=== PATIENT | male | born 1945 | race Caucasian/White ===

== ENCOUNTER 2017-04-23 13:27 | Inpatient (IN) | payer MEDICARE, BC ==
[2017-04-23 14:02] LABS: #Basophils 0.1 thou/uL (0.0-0.2); #Eosinphils 0.2 thou/uL (0.0-0.7); #Lymphocytes 1.7 thou/uL (1.20-3.40); #Monocytes 0.7 thou/uL (0.11-0.59); #Neutrophils 7.7 thou/uL (1.40-6.50); %Basophils 0.6 % (0.0-1.0); %Eosinophils 1.9 % (0.0-10.0); %Lymphocytes 16.5 % (21.0-51.0); %Monocytes 6.6 % (0.0-10.0); %Neutrophils 74.5 % (42.0-75.0); Hemoglobin 13.7 g/dL (14.0-18.0); Mean Corpuscular HGB CONC 33.4 g/dL (32.0-36.0); Mean Corpuscular Hemoglobin 31.2 pg (27.0-31.0); Mean Corpuscular Volume 93.4 fl (80.0-94.0); Mean Platelet Volume 8.2 fL (7.4-10.4); Platelet Count 184 thou/uL (130-400); RBC Distribution Width 13.2 % (11.5-14.5); Red Blood Cell (RBC) Count 4.39 mill/uL (4.70-6.10); White Blood Cell (WBC) Count 10.4 thou/uL (4.8-10.8)
[2017-04-23 14:09] LABS: INR-International Normal Ratio 1.1; PTT 32.1 SEC (22.9-36.1); Prothrombin Time 14.8 SEC (12.0-14.7)
--- NOTE | 2017-04-23 14:11 | RAD ---
CHEST 1 VIEW: COMPARISON: 03/10/17. HISTORY: Stroke in January. Right-sided weakness. Cough and slurred speech. FINDINGS: Portable upright chest demonstrates atherosclerosis of the aorta. Stable postsurgical change of left hilum. Normal cardiac silhouette. The pulmonary vessels are within normal limits. Costophrenic an gles are clear. No mass. No consolidation. No pneumothorax or osseous abnormalities. IMPRESSION: 1. No acute cardiopulmonary process. 2. Atherosclerosis. POS: [facility]
[2017-04-23 14:20] LABS: ALT (SGPT) 24 U/L (8-55); AST (SGOT) 13 U/L (5-34); Alkaline Phosphatase 94 U/L (40-150); Anion Gap 16 mmol/L (10-20); BUN (Urea Nitrogen) 26 mg/dL (8.4-25.7); Bilirubin, Total 0.3 mg/dL (0.2-1.2); Calc. Creatinine Clearance 0 mL/min (70-130); Carbon Dioxide 20 mmol/L (23-31); Chloride 104 mmol/L (98-107); Estimated GFR-MDRD 46; Globulin 2.8 g/dL (2.4-3.5); Glucose 152 mg/dL (83-110); Potassium 4.7 mmol/L (3.5-5.1); Protein, Total 6.8 g/dL (5.8-8.1); Sodium 135 mmol/L (136-145)
[2017-04-23 14:27] LABS: CKMB 1.5 ng/mL (0-6.6); Troponin I Less than 0.010 ng/mL (< 0.028)
--- NOTE | 2017-04-23 14:50 | CT ---
EXAM: NONCONTRAST HEAD CT: HISTORY: Altered mental status. COMPARISON: 02/18/17. TECHNIQUE: Noncontrast head CT is performed from the skull base to the skull vertex. FINDINGS: No parenchymal hemorrhage. No extraaxial hematoma. No midline shift. Basilar cisterns are patent. There is malacic and gliotic change involving the left temporal and occipital lobe compatible with re mote insult. Additionally, there is loss of beckman-white matter differentiation and sulcal effacement involving the superior left temporal lobe. Inferior distribution age-indeterminate infarction is hong pected. There is a linear hyperdensity involving the beckman matter. There could be small areas of cor tical petechial hemorrhages. Better interrogation with brain MRI is recommended. Calvarium is intact. Cavernous carotid atherosclerosis. Adequate aeration of the sinuses and mastoi d air cells. IMPRESSION: 1. Remote lacunar infarcts involving the left cerebrum. 2. Indeterminate, likely subacute infarct involving the left temporal lobe. Correlate for possible middle cerebral artery distribution infarction. Linear hyperdensities in the region of infarct may r epresent small areas of cortical petechial hemorrhage. Brain MRI is recommended. Results of the study were discussed with Dr. Andrés Gutierrez 04/23/17 at 2:11 p.m. CODE CR POS: [facility]
[2017-04-23 15:57] LABS: Bilirubin Negative (Negative); Blood, Urine Negative (Negative); Clarity CLEAR (Clear); Glucose, Urine (Dipstick) Negative (Negative); Leukocyte Trace (Negative); Nitrite Negative (Negative); Protein, Urine (Dipstick) Negative (Neg-Trace); Specific Gravity, Urine 1.019 (1.002-1.036); Urobilinogen 0.2 mg/dL (0.2-1.0); pH, Urine 6.5 (5.0-9.0)
[2017-04-23 16:00] LABS: Bacteria/HPF None Seen HPF (None Seen); Hyaline Casts/LPF 0-3 HYALINE CAST LPF (0-3 Hyaline); RBC/HPF None Seen HPF (0-3); Squamous Epithelial None Seen HPF (0-3); WBC/HPF 0-3 HPF (0-3)
[2017-04-23] MEDS ORDERED: Oxymetazoline HCl 0.05% ( 15 ML ) ONE (16:14)
[2017-04-23] MEDS ORDERED: Ondansetron HCl/PF 4 MG/2 ML Vial IVP PRN ×2 (17:22→21:49)
[2017-04-23] MEDS ORDERED: Acetaminophen 325 MG TAB PO PRN ×2 (17:22→21:49)
[2017-04-23] MEDS ORDERED: HYDROcodone/Acetaminophen 5/325 mg Tablet PO PRN ×2 (17:22)
[2017-04-23] MEDS ORDERED: Ondansetron ODT 4 MG TAB SL PRN (17:22)
--- NOTE | 2017-04-23 17:35 | MRI ---
BRAIN MRI NONCONTRAST 04/23/[address] earlier same day. CLINICAL HISTORY: Altered mental status, acute stroke. FINDINGS: There is evidence of moderate sized region of restriction involving the posterior division left MCA t erritory which demonstrates FLAIR and T2 hyperintensity. There is subtle susceptibility which may rel ate to associated microhemorrhage. There is mild localized mass effect as result of the cytotoxic florence ma within the posterior left hemisphere. Ventricular system is mildly prominent due to patient age an d generalized mild parenchymal volume loss. There is mild chronic microvascular ischemic disease. Mil d right mastoid fluid is present. Motion artifact does limit assessment of the skull base flow voids. IMPRESSION: Subacute infarction, moderate in size involving posterior division left MCA territory with subtle MR findings to indicate a microhemosiderin which may be on the basis of early hemorrhagic transformation . There is mild mass effect as the result of cytotoxic edema. If not already performed, neurology consultation is advised due to the patient's symptoms and imaging findings. Recommend short term CT head followup to evaluate for potential evolutionary changes. POS: [facility]
[2017-04-23] MEDS ORDERED: FLU VACC TS2017-18 (>65YR) 0.5 ML SYRINGE IM ONE (19:45)
[2017-04-23] MEDS: Sodium Chloride 0.9% 1,000 ML IV SCH (20:51)
[2017-04-23] MEDS ORDERED: Calcium Carbonate 500 MG ChewTAB PO PRN (21:49)
[2017-04-23] MEDS ORDERED: Senokot 8.6 MG TAB PO PRN (21:49)
[2017-04-23] MEDS ORDERED: Ondansetron ODT 4 MG TAB PO PRN (21:49)
[2017-04-23] MEDS ORDERED: Acetaminophen 650 MG Suppository PR PRN (21:49)
[2017-04-23] MEDS ORDERED: hydrALAZINE 20 MG/ML VIAL SLOW IVP PRN (21:51)
[2017-04-23] MEDS ORDERED: Labetalol HCl 100 MG/20 ML VIAL SLOW IVP PRN (21:51)
[2017-04-24 05:23] LABS: #Basophils 0.1 thou/uL (0.0-0.2); #Eosinphils 0.2 thou/uL (0.0-0.7); #Lymphocytes 1.9 thou/uL (1.20-3.40); #Monocytes 0.6 thou/uL (0.11-0.59); #Neutrophils 4.9 thou/uL (1.40-6.50); %Basophils 0.8 % (0.0-1.0); %Eosinophils 2.8 % (0.0-10.0); %Lymphocytes 24.7 % (21.0-51.0); %Monocytes 7.7 % (0.0-10.0); Mean Corpuscular HGB CONC 33.3 g/dL (32.0-36.0); Mean Corpuscular Hemoglobin 31.1 pg (27.0-31.0); Mean Corpuscular Volume 93.2 fl (80.0-94.0); Mean Platelet Volume 8.3 fL (7.4-10.4); Platelet Count 180 thou/uL (130-400); RBC Distribution Width 13.2 % (11.5-14.5); Red Blood Cell (RBC) Count 4.19 mill/uL (4.70-6.10); White Blood Cell (WBC) Count 7.6 thou/uL (4.8-10.8)
[2017-04-24 05:46] LABS: ALT (SGPT) 21 U/L (8-55); AST (SGOT) 14 U/L (5-34); Albumin 3.8 g/dL (3.4-4.8); Alkaline Phosphatase 90 U/L (40-150); Anion Gap 11 mmol/L (10-20); BUN (Urea Nitrogen) 20 mg/dL (8.4-25.7); Bilirubin, Total 0.4 mg/dL (0.2-1.2); Calc. Creatinine Clearance 68 mL/min (70-130); Calcium 9.8 mg/dL (7.8-10.44); Carbon Dioxide 23 mmol/L (23-31); Cardiac Risk 6.1 (Less than 4.5); Chloride 106 mmol/L (98-107); Cholesterol 200 mg/dl (< 200 Desired); Estimated GFR-MDRD 56; Globulin 2.7 g/dL (2.4-3.5); Glucose 123 mg/dL (83-110); HDL Cholesterol 33 mg/dL (>60 Neg Risk); LDL Cholesterol, Calculated 127 mg/dL; Potassium 4.3 mmol/L (3.5-5.1); Protein, Total 6.5 g/dL (5.8-8.1); Sodium 136 mmol/L (136-145); Triglycerides 199 mg/dL (Less than 150)
[2017-04-24] MEDS ORDERED: Dextrose 5% in Water 1,000 ML IV PRN (06:02)
[2017-04-24] MEDS ORDERED: Dextrose 50% Abboject 50 ML SYRINGE SLOW IVP PRN (06:02)
[2017-04-24] MEDS ORDERED: Insulin Regular 300 UNITS/3 ML VIAL SC PRN ×2 (06:02)
--- NOTE | 2017-04-24 06:28 | HP ---
Please note that patient has 2 different medical records. Records from recent admission are in different account. DATE OF ADMISSION: 04/23/2017 PRIMARY CARE PHYSICIAN: Enrrique thao. CHIEF COMPLAINT: Flu-like symptoms. CODE STATUS: DO NOT RESUSCITATE. This was confirmed by RN with family. SURROGATE DECISION MAKER: Family. Probably the spouse. This needs to be reconfirmed. History obtained from the review of the ER chart. No family at the bedside. The patient is a poor historian. HISTORY OF PRESENT ILLNESS: The patient is a 71-year-old male with history of recent CVA, currently on Eliquis; diabetes mellitus type 2; and hypertension who presented to the emergency room with stroke like symptoms. Again, the history is limited due to patient being a poor historian. No family at the bedside. Per review of ER record, patient had a stroke in January with residual right-sided weakness and slurring of speech. Over the last 24 hours, his weakness and slurring of speech got worse for which he was brought to the emergency room. His NIH in the emergency room was 12. He was sitting on the side of the bed at home when he slumped over and was unable to get up. His initial vital signs in the emergency room showed temperature 97.8, respirations 18, pulse rate of 70 with blood pressure 135/65 with O2 saturation of 96% on room air. He also had decreased alertness per ER report. In the emergency room, CT scan of the brain was consistent with subacute infarction involving the left temporal lobe along with possible petechial hemorrhages. MRI of the brain done in the emergency room showed subacute infarction, moderate in size involving posterior division of the left MCA territory with possible early hemorrhagic transformation. For this reason, he did not get any aspirin or Eliquis. His last dose of Eliquis was in the morning of admission. PAST MEDICAL HISTORY: 1. Chronic atrial fibrillation on anticoagulation. 2. Hypertension. 3. Diabetes mellitus type 2. 4. History of lung cancer, status post lobectomy. 5. History of CVA. 6. Hypertension. PAST SURGICAL HISTORY: 1. Left carotid endarterectomy in 2014. 2. Left thoracotomy with left upper lobectomy and mediastinal lymph node dissection in 2014. 3. Surgery for hernia. SOCIAL HISTORY: Patient currently lives at home with his family. He is a former smoker, has more than [id number] smoking history. FAMILY HISTORY: Positive for heart disease and malignancies. REVIEW OF SYSTEMS: Cannot be reliably obtained from the patient due to current cognitive status. PHYSICAL EXAMINATION: VITAL SIGNS: As discussed above. GENERAL: A 71-year-old male in no apparent distress. He is awake with intermittent confusion. HEENT: Head is atraumatic, normocephalic. Sclerae are anicteric. Moist mucous membranes. No oral lesion. NECK: Supple, no JVD appreciated. No carotid bruit. LUNGS: Clear to auscultation bilaterally with scattered rhonchi, no wheezing noted. HEART: S1 and S2 present. Regular rate and rhythm. No rubs or gallops. No heaves or pulsation. ABDOMEN: Soft. Bowel sounds present. No rebound or guarding. EXTREMITIES: No edema or calf tenderness. NEUROLOGIC: Examination was limited due to current cognitive status. He was, however, following commands appropriately. There is flaccid right-sided weakness. His speech is still somewhat slurry. Sensory examination could not be done due to current cognitive status. PSYCHIATRY: As discussed above. LYMPH NODES: No palpable lymph nodes in the neck. PERIPHERAL VASCULAR: Radial pulses palpable bilaterally. MUSCULOSKELETAL: No joint swelling or tenderness. LABORATORY DATA AND IMAGING DATA: 1. Creatinine 1.50 with BUN of 26. 2. CBC showed WBC 10.4 with hemoglobin 13.7. 3. Chest x-ray by my review was negative for infiltrate. 4. CT of the brain and MRI by my review as discussed above. 5. Telemetry monitoring by my review showed sinus rhythm. 6. Troponins were negative. IMPRESSION: 1. Acute cerebrovascular accident involving the left middle cerebral artery distribution with possible hemorrhagic transformation. 2. Diabetes mellitus type 2. 3. Hypertension. 4. Hyperlipidemia. 5. Acute kidney injury on chronic kidney disease stage 3, probably secondary to dehydration. 6. Chronic anticoagulation for atrial fibrillation. 7. History of carotid stenosis, status post left carotid endarterectomy. 8. History of left lung cancer status post lobectomy. 9. A 90-[id number] smoking history. 10. DO NOT RESUSCITATE. PLAN: 1. The patient will be monitored in the Stroke Unit. Stroke team will be consulted. We will hold anticoagulants and antiplatelet agents due to possible hemorrhagic conversion. Neurology will be consulted. We will hold all the p.o. medications due to failed dysphagia screen. Gentle intravenous hydration. Insulin sliding scale. 2. The patient will require 2-3 days for stabilization. 3. Discharge planning probably to inpatient rehabilitation versus long term facility. 4. We will discuss the plan of care with the family when they arrive. [facility]
[2017-04-24] MEDS: Docusate 100 MG CAP PO SCH ×2 (08:30→22:25)
[2017-04-24] MEDS: Famotidine 20 MG TAB PO SCH (08:30)
[2017-04-24] MEDS: Sodium Chloride 0.9% 1,000 ML IV SCH (11:00)
[2017-04-24 11:40] VITALS: BMI 28.3
--- NOTE | 2017-04-24 15:48 | EKG ---
Test Reason : Blood Pressure : / mmHG Vent. Rate : 069 BPM Atrial Rate : 069 BPM P-R Int : 196 ms QRS Dur : 090 ms QT Int : 432 ms P-R-T Axes : 066 029 070 degrees QTc Int : 462 ms Normal sinus rhythm Prolonged QT Abnormal ECG Confirmed by LEANA PILLAI MD ([id number]), communications editor IAN STARKEY ([id number]) on 04/24/2017 3:47:57 PM Referred By: Confirmed By:LEANA PILLAI MD
--- NOTE | 2017-04-24 16:16 | CON ---
NEUROLOGY CONSULTATION NOTE DATE OF CONSULTATION: 04/24/2017 CONSULTING PHYSICIAN: Hospitalist Service. IMPRESSION: 1. Recurrent stroke in the left posterior MCA distribution. 2. Atrial fibrillation. 3. Past history of left carotid endarterectomy. 4. Eliquis failure. PLAN: 1. Repeat CT scan in 2 days and to rule out secondary hemorrhaging of significance. 2. Restart anticoagulation in [address] is stable. 3. Add aspirin 81 mg per day. 4. The patient will be discharged home to his 's care. HISTORY OF PRESENT ILLNESS: Mr. Arcos is a 71-year-old man with a reported history of a stroke with some right hemiparesis and speech difficulties. He was hospitalized in February and then went on to rehab as did not care that he received in rehab and has been taking care of him at home. He had an acute worsening of his right-sided weakness and came back into the hospital. A CT scan showed ev idence of subacute ischemic changes as well as some petechial hemorrhage, has been admitted for furth er evaluation and he was taken off of his Eliquis. PAST MEDICAL HISTORY: Positive for lung cancer, COPD, hypertension and diabetes. PAST SURGICAL HISTORY: Left endarterectomy in 2014, thoracotomy and hernia repair. SOCIAL HISTORY: Tobacco use of [id number] history. FAMILY HISTORY: Noncontributory. REVIEW OF SYSTEMS: No complaints of headache, nausea or dizziness. PHYSICAL EXAMINATION: GENERAL: He is a well-nourished elderly man lying in bed in no distress. HEENT: Pupils are equal and reactive. Conjunctivae clear. Oropharynx clear. NECK: Supple. EXTREMITIES: No cyanosis, clubbing or edema. NEUROLOGIC: He is alert and cooperative. He had naming and word finding difficulty. He followed co mmands reasonably well. Cranial nerve exam did not show any remarkable asymmetries. Motor exam show ed fairly dense hemiparesis on the right. Gait was not testable. No abnormal movements were seen. Sensation was intact. IMAGING DATA: CT and MRI images were reviewed. SUMMARY: An elderly gentleman with recurrent stroke symptoms despite anticoagulation. I suspect it may be a primary thrombosis. If he has a stable CT scan, we can restart anticoagulation as well as l ow dose aspirin.
--- NOTE | 2017-04-24 16:49 | CON ---
DATE OF CONSULTATION: 04/24/2017 HISTORY: Arcos patient is a 71-year-old gentleman with a history of cerebrovascular accident who presented with increasing weakness. The patient has a history of lung carcinoma. He has previously undergone a lung resection. He also has a history of cerebrovascular disease. The patient was seen in 2015 with postoperative atrial fibrillation. He has been on chronic anticoagulation including apixaban. The patient presented with apparent extreme weakness and possibly more slurred speech with increasing weakness. PAST MEDICAL HISTORY: 1. Cerebrovascular disease. 2. Diabetes mellitus. 3. Lung carcinoma. 4. Hypertension. PAST SURGICAL HISTORY: Carotid endarterectomy, hernia surgery, lung resection. SOCIAL HISTORY: Former smoker. FAMILY HISTORY: Strong family history of heart disease. REVIEW OF SYSTEMS: No bright red blood per rectum or hematuria. PHYSICAL EXAMINATION: GENERAL: Elderly gentleman in no acute distress. VITAL SIGNS: Blood pressure was 145/64. NECK: No jugular venous distention. LUNGS: Coarse breath sounds bilateral. HEART: Regular rate and rhythm, normal S1, S2. ABDOMEN: Nondistended. EXTREMITIES: Showed no edema. NEUROLOGIC: The patient has slurred speech and right-sided weakness. VASCULAR: Radial pulses are 2+. LABORATORY DATA: Sodium 136, potassium 4.3, chloride 106, bicarbonate 23, BUN 20, creatinine 1.27, glucose 123. White blood cell count 7.6, hemoglobin 13.0, hematocrit 31.1, and his platelets were 180. His EKG revealed him to have normal sinus rhythm. IMPRESSION: 1. Cerebrovascular accident. 2. Hypertension. 3. History of lung carcinoma. 4. History of cerebrovascular accident. The patient presents with a possible new CVA based on his CT scan. The patient' s apixaban is being held to prevent hemorrhagic conversion. From a cardiac standpoint, would continue the patient on Amiodarone to maintain sinus rhythm. We will increase the dose of the patient's lipid lowering medication. We will repeat a carotid ultrasound. We will await Neurology recommendations. We will follow this patient with you through his hospitalization. KRISTI
[2017-04-24] MEDS ORDERED: Aspirin 81 mg Enteric Coated Tablet PO SCH (17:30)
--- NOTE | 2017-04-24 21:01 | PDOC.PN ---
- Subjective Encounter Start Date: 04/24/17 Encounter Start Time: 18:00 Patient seen and examined. No new complaints. No overnight events. No new focal deficits. - Objective Resuscitation Status: Resuscitation Status DNR:Do Not Resuscitate MAR Reviewed: Yes Vital Signs & Weight: Vital Signs (12 hours) Temp Pulse Pulse Pulse Resp BP BP 04/24/17 20:47 98 F 77 20 04/24/17 20:21 97.8 F 82 20 04/24/17 15:34 97.8 F 82 20 04/24/17 11:49 97.7 F 94 20 04/24/17 11:41 85 78 173/77 H 180/74 H BP Pulse Ox 04/24/17 20:47 155/70 H 91 L 04/24/17 20:21 91 L 04/24/17 15:34 128/60 95 04/24/17 11:49 173/77 H 94 L 04/24/17 11:41 Weight Admit Weight 199 lb 6.4 oz Weight 202 lb 11.2 oz I&O: 04/23/17 04/24/17 04/25/17 06:59 06:59 06:59 Intake Total 666 Output Total 775 2 Balance -109 -2 Result Diagrams: 04/24/17 04:37 04/24/17 04:37 Additional Labs: Accuchecks 04/24/17 04/24/17 04/24/17 17:02 11:03 06:27 POC Glucose 163 H 120 H 128 H 04/23/17 21:19 POC Glucose 109 EKG Reviewed by me: Yes (Tele SR) Phys Exam - Physical Examination Constitutional: NAD Respiratory: no wheezing, no rhonchi Cardiovascular: RRR, no rub Gastrointestinal: soft, non-tender, positive bowel sounds Musculoskeletal: no edema Neuro - Rt sided weakness, no new focal findings Deviation from normal: Psych - at baseline Skin: no rash Dx/Plan - Plan DVT proph w/SCDs IMPRESSION: 1. Acute cerebrovascular accident involving the left middle cerebral artery distribution with possible hemorrhagic transformation. 2. Diabetes mellitus type 2. 3. Hypertension. 4. Hyperlipidemia. 5. Acute kidney injury on chronic kidney disease stage 3, probably secondary to dehydration. 6. Chronic anticoagulation for atrial fibrillation. 7. History of carotid stenosis, status post left carotid endarterectomy. 8. History of left lung cancer status post lobectomy. 9. A [id number] smoking history. 10. DO NOT RESUSCITATE. PLAN: * Resume ASA and repeat CT brain on wednesday per Neuro * Eliquis on hold * Cardio/Neuro following * Resume Amiodarone/Lisinopril * Stroke team * Cont to monitor Review of Systems - Review of Systems Other: Cannot obtain due to dementia - Medications/Allergies Allergies/Adverse Reactions: Allergies Allergy/AdvReac Type Severity Reaction Status Date / Time No Known Allergies Allergy Verified 04/23/17 19:16 Medications: Current Medications Acetaminophen (Tylenol) 650 mg PO Q4H PRN PRN Reason: Headache/Fever or Pain Acetaminophen (Tylenol) 650 mg [place] Q4H PRN PRN Reason: Headache/Fever or Pain Aspirin (Ecotrin) 81 mg PO DAILY [facility] Atorvastatin Calcium (Lipitor) 10 mg PO HS [facility] Calcium Carbonate (Tums) 1,000 mg PO Q4H PRN PRN Reason: Heartburn or Indigestion Dextrose/Water (Dextrose 50%) 25 gm SLOW IVP PRN PRN PRN Reason: Hypoglycemia Docusate Sodium (Colace) 100 mg PO BID [facility] Last Admin: 04/24/17 08:30 Dose: Not Given Famotidine (Pepcid) 20 mg PO DAILY [facility] Last Admin: 04/24/17 08:30 Dose: Not Given Glucagon (Glucagon) 1 mg IM PRN PRN PRN Reason: Hypoglycemia Hydralazine HCl (Apresoline) 10 mg SLOW IVP Q4H PRN PRN Reason: SBP Greater Than 180 Sodium Chloride (Normal Saline 0.9%) 1,000 mls @ 70 mls/hr IV .[id number] [facility] Last Admin: 04/24/17 11:00 Dose: 1,000 mls Dextrose/Water (D5w) 1,000 mls @ 0 mls/hr IV .Q0M PRN; As Directed PRN Reason: Hypoglycemia Insulin Human Regular (Humulin R) 0 units SC .MILD SLIDING SCALE PRN PRN Reason: Mild Correctional Scale Insulin Human Regular (Humulin R) 0 units SC .BEDTIME SLIDING SC PRN PRN Reason: Bedtime Correctional Scale Labetalol HCl (Normodyne) 10 mg SLOW IVP Q4H PRN PRN Reason: Systolic BP > 180 Lisinopril (Zestril) 10 mg PO DAILY [facility] Non-Formulary Medication (Amiodarone Hcl [Amiodarone Hcl]) 400 mg PO DAILY [facility] Non-Formulary Medication (Diltiazem Hcl [Cartia Xt]) 120 mg PO DAILY [facility] Ondansetron HCl (Zofran Odt) 4 mg PO Q6H PRN PRN Reason: Nausea/Vomiting Ondansetron HCl (Zofran) 4 mg IVP Q6H PRN PRN Reason: Nausea/Vomiting Senna (Senokot) 2 tab PO HSPRN PRN PRN Reason: Constipation
[2017-04-24] MEDS: Atorvastatin Calcium 10 MG TAB PO SCH (22:25)
[2017-04-25] MEDS: Sodium Chloride 0.9% 1,000 ML IV SCH ×3 (00:17→17:46)
[2017-04-25] MEDS: Lisinopril 10 MG TAB PO SCH (08:39)
[2017-04-25] MEDS: Famotidine 20 MG TAB PO SCH (08:39)
[2017-04-25] MEDS: Aspirin 81 mg Enteric Coated Tablet PO SCH (08:40)
[2017-04-25] MEDS: Docusate 100 MG CAP PO SCH ×2 (08:40→21:40)
[2017-04-25] MEDS: Amiodarone 200 MG TAB PO SCH (08:40)
--- NOTE | 2017-04-25 13:37 | PDOC.PN ---
- Subjective Encounter Start Date: 04/25/17 Encounter Start Time: 13:35 Patient seen at bedside. Still with slurring speech, no overnight events. - Objective Resuscitation Status: Resuscitation Status DNR:Do Not Resuscitate MAR Reviewed: Yes Vital Signs & Weight: Vital Signs (12 hours) Temp Pulse Resp BP Pulse Ox 04/25/17 11:53 98.5 F 70 20 153/72 H 95 04/25/17 08:39 75 04/25/17 08:00 97.9 F 75 20 04/25/17 07:48 97.9 F 75 20 168/75 H 94 L 04/25/17 04:42 98.5 F 79 16 169/79 H 93 L Weight Admit Weight 199 lb 6.4 oz Weight 207 lb 1.6 oz I&O: 04/24/17 04/25/17 04/26/17 06:59 06:59 06:59 Intake Total 666 840 Output Total 775 2 Balance -109 838 Result Diagrams: 04/24/17 04:37 04/24/17 04:37 Additional Labs: Accuchecks 04/25/17 04/25/17 04/25/17 10:49 06:13 01:07 POC Glucose 178 H 123 H 117 H 04/24/17 17:02 POC Glucose 163 H Phys Exam - Physical Examination Constitutional: NAD HEENT: moist MMs Neck: no JVD Respiratory: clear to auscultation bilateral Cardiovascular: irregular Gastrointestinal: soft Musculoskeletal: pulses present Right sided weakness Psychiatric: A&O x 3 Dx/Plan (1) CVA (cerebral vascular accident) Code(s): I63.9 - CEREBRAL INFARCTION, UNSPECIFIED Status: Acute Qualifiers: CVA mechanism: unspecified Qualified Code(s): I63.9 - Cerebral infarction, unspecified (2) Atrial fibrillation Code(s): I48.91 - UNSPECIFIED ATRIAL FIBRILLATION Status: Chronic (3) Hypertension Code(s): I10 - ESSENTIAL (PRIMARY) HYPERTENSION Status: Chronic - Plan cont current plan of care, plan discussed w/ family, PT/OT, DVT proph w/SCDs * Continue with ASA/Statin. * Add Hydralazine * Amiodarone for rate control/antiarrythmia * For repeat CT in AM to reevaluate possible hemorrhagic conversion seen on MRI. If stable or improved, to restart Eliquis * PT/OT * CM for disposition assistance
[2017-04-25] MEDS: hydrALAZINE 10 MG TAB PO SCH (21:40)
[2017-04-25] MEDS: Atorvastatin Calcium 10 MG TAB PO SCH (21:40)
[2017-04-26] MEDS: Sodium Chloride 0.9% 1,000 ML IV SCH (05:53)
[2017-04-26 07:36] LABS: #Basophils 0.1 thou/uL (0.0-0.2); #Eosinphils 0.2 thou/uL (0.0-0.7); #Lymphocytes 1.7 thou/uL (1.20-3.40); #Monocytes 0.6 thou/uL (0.11-0.59); #Neutrophils 5.1 thou/uL (1.40-6.50); %Eosinophils 2.7 % (0.0-10.0); %Lymphocytes 22.1 % (21.0-51.0); %Monocytes 7.4 % (0.0-10.0); %Neutrophils 66.8 % (42.0-75.0); Hemoglobin 14.6 g/dL (14.0-18.0); Mean Corpuscular HGB CONC 34.1 g/dL (32.0-36.0); Mean Corpuscular Hemoglobin 31.6 pg (27.0-31.0); Mean Corpuscular Volume 92.4 fl (80.0-94.0); Mean Platelet Volume 8.7 fL (7.4-10.4); Platelet Count 188 thou/uL (130-400); RBC Distribution Width 13.3 % (11.5-14.5); Red Blood Cell (RBC) Count 4.61 mill/uL (4.70-6.10); White Blood Cell (WBC) Count 7.6 thou/uL (4.8-10.8)
[2017-04-26 08:01] LABS: Albumin 3.9 g/dL (3.4-4.8); Anion Gap 15 mmol/L (10-20); BUN (Urea Nitrogen) 13 mg/dL (8.4-25.7); BUN/Creatinine Ratio 10.48; Calc. Creatinine Clearance 72 mL/min (70-130); Calcium 10.1 mg/dL (7.8-10.44); Carbon Dioxide 20 mmol/L (23-31); Chloride 108 mmol/L (98-107); Estimated GFR-MDRD 57; Glucose 124 mg/dL (83-110); Magnesium 1.9 mg/dL (1.6-2.6); Potassium 4.1 mmol/L (3.5-5.1); Sodium 139 mmol/L (136-145)
--- NOTE | 2017-04-26 08:36 | CT ---
CT OF THE BRAIN WITHOUT IV CONTRAST: INDICATION: Followup CVA. COMPARISON: CT of the brain dated 04/23/17 and MRI of the brain dated 04/23/17. FINDINGS: The subacute infarct with evidence of some cortical hemorrhagic conversion involving the posterior le ft MCA distribution is not appreciably changed. The remote infarct involving the left parietal occip ital region is stable. Septum pellucidum and third ventricle are midline. No definite acute change is grossly evident. The skull and extracranial soft tissues appear within normal limits. IMPRESSION: Stable exam. POS: [facility]
[2017-04-26] MEDS: Amiodarone 200 MG TAB PO SCH (09:13)
[2017-04-26] MEDS: Aspirin 81 mg Enteric Coated Tablet PO SCH (09:13)
[2017-04-26] MEDS: Lisinopril 10 MG TAB PO SCH (09:14)
[2017-04-26] MEDS: Docusate 100 MG CAP PO SCH ×2 (09:14→22:16)
[2017-04-26] MEDS: hydrALAZINE 10 MG TAB PO SCH ×2 (09:14→22:14)
[2017-04-26] MEDS: Famotidine 20 MG TAB PO SCH (09:14)
--- NOTE | 2017-04-26 21:24 | PDOC.PN ---
- Subjective Encounter Start Date: 04/26/17 Encounter Start Time: 17:00 Patient seen and examined. No new complaints. No overnight events. No new focal deficits. - Objective Resuscitation Status: Resuscitation Status DNR:Do Not Resuscitate MAR Reviewed: Yes Vital Signs & Weight: Vital Signs (12 hours) Temp Pulse Resp BP Pulse Ox 04/26/17 19:35 98.4 F 79 16 94 L 04/26/17 15:33 98.4 F 76 20 148/67 H 96 04/26/17 12:01 97.9 F 86 20 123/100 H 95 Weight Admit Weight 199 lb 6.4 oz Weight 207 lb 1.6 oz I&O: 04/25/17 04/26/17 04/27/17 06:59 06:59 06:59 Intake Total 840 840 Output Total 2 125 Balance 838 715 Result Diagrams: 04/28/17 05:50 04/28/17 05:50 Additional Labs: Accuchecks 04/26/17 04/26/17 04/26/17 17:15 11:06 05:48 POC Glucose 95 176 H 111 H 04/26/17 00:05 POC Glucose 101 EKG Reviewed by me: Yes (Tele SR) Phys Exam - Physical Examination Constitutional: NAD Respiratory: no wheezing, no rhonchi Cardiovascular: RRR, no rub Gastrointestinal: soft, positive bowel sounds Musculoskeletal: no edema Dx/Plan - Plan DVT proph w/SCDs IMPRESSION: 1. Acute cerebrovascular accident involving the left middle cerebral artery distribution with possible hemorrhagic transformation. 2. Diabetes mellitus type 2. 3. Hypertension. 4. Hyperlipidemia. 5. Acute kidney injury on chronic kidney disease stage 3, probably secondary to dehydration. 6. Chronic anticoagulation for atrial fibrillation - Eliquis on hold 7. History of carotid stenosis, status post left carotid endarterectomy. 8. History of left lung cancer status post lobectomy. 9. A 83-mwag-siqs smoking history. 10. DO NOT RESUSCITATE. PLAN: * Cont ASA * Await Neuro input on repeat CT brain * Cardio/Neuro following * Cont current meds as below * Stroke team * DC planning * Cont to monitor Review of Systems - Review of Systems Respiratory: negative: Cough, Dry, Shortness of Breath, Hemoptysis, SOB with Excertion, Pleuritic Pain, Sputum, Wheezing Cardiovascular: negative: chest pain, palpitations, orthopnea, paroxysmal nocturnal dyspnea, edema, light headedness - Medications/Allergies Allergies/Adverse Reactions: Allergies Allergy/AdvReac Type Severity Reaction Status Date / Time No Known Allergies Allergy Verified 04/23/17 19:16 Medications: Current Medications Acetaminophen (Tylenol) 650 mg PO Q4H PRN PRN Reason: Headache/Fever or Pain Acetaminophen (Tylenol) 650 mg [place] Q4H PRN PRN Reason: Headache/Fever or Pain Amiodarone HCl (Cordarone) 400 mg PO DAILY [facility] Last Admin: 04/26/17 09:13 Dose: 400 mg Aspirin (Ecotrin) 81 mg PO DAILY [facility] Last Admin: 04/26/17 09:13 Dose: 81 mg Atorvastatin Calcium (Lipitor) 10 mg PO HS [facility] Last Admin: 04/25/17 21:40 Dose: 10 mg Calcium Carbonate (Tums) 1,000 mg PO Q4H PRN PRN Reason: Heartburn or Indigestion Dextrose/Water (Dextrose 50%) 25 gm SLOW IVP PRN PRN PRN Reason: Hypoglycemia Diltiazem HCl (Cardizem Cd) 120 mg PO DAILY [facility] Last Admin: 04/26/17 09:13 Dose: 120 mg Docusate Sodium (Colace) 100 mg PO BID [facility] Last Admin: 04/26/17 09:14 Dose: 100 mg Famotidine (Pepcid) 20 mg PO DAILY [facility] Last Admin: 04/26/17 09:14 Dose: 20 mg Glucagon (Glucagon) 1 mg IM PRN PRN PRN Reason: Hypoglycemia Hydralazine HCl (Apresoline) 10 mg SLOW IVP Q4H PRN PRN Reason: SBP Greater Than 180 Hydralazine HCl (Apresoline) 10 mg PO BID [facility] Last Admin: 04/26/17 09:14 Dose: 10 mg Dextrose/Water (D5w) 1,000 mls @ 0 mls/hr IV .Q0M PRN; As Directed PRN Reason: Hypoglycemia Insulin Human Regular (Humulin R) 0 units SC .MILD SLIDING SCALE PRN PRN Reason: Mild Correctional Scale Last Admin: 04/25/17 11:26 Dose: 2 unit Insulin Human Regular (Humulin R) 0 units SC .BEDTIME SLIDING SC PRN PRN Reason: Bedtime Correctional Scale Labetalol HCl (Normodyne) 10 mg SLOW IVP Q4H PRN PRN Reason: Systolic BP > 180 Lisinopril (Zestril) 10 mg PO DAILY [facility] Last Admin: 04/26/17 09:14 Dose: 10 mg Ondansetron HCl (Zofran Odt) 4 mg PO Q6H PRN PRN Reason: Nausea/Vomiting Ondansetron HCl (Zofran) 4 mg IVP Q6H PRN PRN Reason: Nausea/Vomiting Senna (Senokot) 2 tab PO HSPRN PRN PRN Reason: Constipation
[2017-04-26] MEDS: Atorvastatin Calcium 10 MG TAB PO SCH (22:14)
[2017-04-27] MEDS: Aspirin 81 mg Enteric Coated Tablet PO SCH (08:48)
[2017-04-27] MEDS: Amiodarone 200 MG TAB PO SCH (08:49)
[2017-04-27] MEDS: Famotidine 20 MG TAB PO SCH (08:49)
[2017-04-27] MEDS: Lisinopril 10 MG TAB PO SCH (08:49)
[2017-04-27] MEDS: Docusate 100 MG CAP PO SCH ×2 (08:49→21:40)
[2017-04-27] MEDS: hydrALAZINE 10 MG TAB PO SCH ×2 (08:49→21:40)
[2017-04-27] MEDS: Atorvastatin Calcium 10 MG TAB PO SCH (21:40)
[2017-04-27] MEDS: Apixaban 5 MG TAB PO SCH (21:41)
--- NOTE | 2017-04-27 21:58 | PDOC.PN ---
- Subjective Encounter Start Date: 04/27/17 Encounter Start Time: 18:30 Patient seen and examined. No new complaints. No new focal deficits. No overnight events - Objective Resuscitation Status: Resuscitation Status DNR:Do Not Resuscitate MAR Reviewed: Yes Vital Signs & Weight: Vital Signs (12 hours) Temp Pulse Resp BP BP BP Pulse Ox 04/27/17 21:40 63 137/66 04/27/17 20:58 98.3 F 63 16 137/66 95 04/27/17 15:20 97.5 F L 68 18 136/64 98 04/27/17 11:15 98.4 F 71 18 124/59 L 94 L Weight Admit Weight 199 lb 6.4 oz Weight 207 lb 1.6 oz I&O: 04/26/17 04/27/17 04/28/17 06:59 06:59 06:59 Intake Total 840 240 Output Total 125 150 150 Balance 715 90 -150 Result Diagrams: 04/28/17 05:50 04/28/17 05:50 Additional Labs: Accuchecks 04/27/17 04/27/17 04/27/17 18:57 12:18 05:55 POC Glucose 154 H 120 H 123 H 04/26/17 21:26 POC Glucose 227 H EKG Reviewed by me: Yes (Tele SR) Phys Exam - Physical Examination Constitutional: NAD Respiratory: no wheezing, no rhonchi Cardiovascular: RRR, no rub Gastrointestinal: soft, non-tender, positive bowel sounds Musculoskeletal: no edema Neuro- no new focal deficits. Dx/Plan - Plan DVT proph w/SCDs IMPRESSION: 1. Acute cerebrovascular accident involving the left middle cerebral artery distribution with possible hemorrhagic transformation. 2. Diabetes mellitus type 2. 3. Hypertension. 4. Hyperlipidemia. 5. Acute kidney injury on chronic kidney disease stage 3, probably secondary to dehydration. improving 6. Chronic anticoagulation for atrial fibrillation - Eliquis on hold 7. History of carotid stenosis, status post left carotid endarterectomy. 8. History of left lung cancer status post lobectomy. 9. A 84-yosm-lhly smoking history. 10. DO NOT RESUSCITATE. PLAN: * Cont ASA with Eliquis per Neuro recommendation * DC in AM if no new focal deficits overnight * Cont current meds as below Review of Systems - Review of Systems Respiratory: negative: Cough, Dry, Shortness of Breath, Hemoptysis, SOB with Excertion, Pleuritic Pain, Sputum, Wheezing Cardiovascular: negative: chest pain, palpitations, orthopnea, paroxysmal nocturnal dyspnea, edema, light headedness - Medications/Allergies Allergies/Adverse Reactions: Allergies Allergy/AdvReac Type Severity Reaction Status Date / Time No Known Allergies Allergy Verified 04/23/17 19:16 Medications: Current Medications Acetaminophen (Tylenol) 650 mg PO Q4H PRN PRN Reason: Headache/Fever or Pain Acetaminophen (Tylenol) 650 mg AR Q4H PRN PRN Reason: Headache/Fever or Pain Amiodarone HCl (Cordarone) 400 mg PO DAILY [facility] Last Admin: 04/27/17 08:49 Dose: 400 mg Apixaban (Eliquis) 5 mg PO BID [facility] Last Admin: 04/27/17 21:41 Dose: 5 mg Aspirin (Ecotrin) 81 mg PO DAILY [facility] Last Admin: 04/27/17 08:48 Dose: 81 mg Atorvastatin Calcium (Lipitor) 10 mg PO HS [facility] Last Admin: 04/27/17 21:40 Dose: 10 mg Calcium Carbonate (Tums) 1,000 mg PO Q4H PRN PRN Reason: Heartburn or Indigestion Dextrose/Water (Dextrose 50%) 25 gm SLOW IVP PRN PRN PRN Reason: Hypoglycemia Diltiazem HCl (Cardizem Cd) 120 mg PO DAILY [facility] Last Admin: 04/27/17 08:49 Dose: 120 mg Docusate Sodium (Colace) 100 mg PO BID [facility] Last Admin: 04/27/17 21:40 Dose: 100 mg Famotidine (Pepcid) 20 mg PO DAILY [facility] Last Admin: 04/27/17 08:49 Dose: 20 mg Glucagon (Glucagon) 1 mg IM PRN PRN PRN Reason: Hypoglycemia Hydralazine HCl (Apresoline) 10 mg SLOW IVP Q4H PRN PRN Reason: SBP Greater Than 180 Hydralazine HCl (Apresoline) 10 mg PO BID [facility] Last Admin: 04/27/17 21:40 Dose: 10 mg Dextrose/Water (D5w) 1,000 mls @ 0 mls/hr IV .Q0M PRN; As Directed PRN Reason: Hypoglycemia Insulin Human Regular (Humulin R) 0 units SC .MILD SLIDING SCALE PRN PRN Reason: Mild Correctional Scale Last Admin: 04/25/17 11:26 Dose: 2 unit Insulin Human Regular (Humulin R) 0 units SC .BEDTIME SLIDING SC PRN PRN Reason: Bedtime Correctional Scale Labetalol HCl (Normodyne) 10 mg SLOW IVP Q4H PRN PRN Reason: Systolic BP > 180 Lisinopril (Zestril) 10 mg PO DAILY [facility] Last Admin: 04/27/17 08:49 Dose: 10 mg Ondansetron HCl (Zofran Odt) 4 mg PO Q6H PRN PRN Reason: Nausea/Vomiting Ondansetron HCl (Zofran) 4 mg IVP Q6H PRN PRN Reason: Nausea/Vomiting Senna (Senokot) 2 tab PO HSPRN PRN PRN Reason: Constipation
[2017-04-28 06:04] LABS: Platelet Count 188 thou/uL (130-400)
[2017-04-28] MEDS: Docusate 100 MG CAP PO SCH (08:09)
[2017-04-28] MEDS: Amiodarone 200 MG TAB PO SCH (08:10)
[2017-04-28] MEDS: Famotidine 20 MG TAB PO SCH (08:10)
[2017-04-28] MEDS: Apixaban 5 MG TAB PO SCH (08:10)
[2017-04-28] MEDS: Aspirin 81 mg Enteric Coated Tablet PO SCH (08:10)
[2017-04-28] MEDS: hydrALAZINE 10 MG TAB PO SCH (08:10)
[2017-04-28] MEDS: Lisinopril 10 MG TAB PO SCH (08:10)
[2017-04-28 11:57] VITALS: BP 129/64; TEMP 98.9
--- NOTE | 2017-04-28 17:20 | DIS ---
DISCHARGE DISPOSITION: [facility] under the care of Dr. Yañez. INPATIENT CONSULTANTS: 1. Neurology, Dr. Logan. 2. Cardiology, Dr. Jabier Barnard. The patient was seen and examined on the day of discharge. He denies any new complaints. No new foc al deficits. BRIEF HOSPITAL COURSE: The patient is a 71-year-old male with recent CVA, currently on Eliquis, diab etes mellitus type 2, and hypertension, who presented to the hospital with stroke-like symptoms. Ple ase refer to the history and physical dated 04/23/2017 for further details. The patient was admitted to the hospital with the diagnosis of acute cerebrovascular accident involvi ng the left middle cerebral artery distribution with possible hemorrhagic transformation. Anticoagul ation was held due to hemorrhagic conversion. MRI of the brain done on the day of admission showed s ubacute infarction, moderate in size involving the posterior division, left MCA territory with certai n MR findings to indicate micro hemosiderin which may be on the basis of early hemolytic transformati on. The patient was evaluated by Cardiology, Dr. Jabier Barnard and Neurology, Dr. Logan. Dr. Navarrete ist recommended a repeat CT brain after 1-2 days which was essentially stable. Per Dr. Logan's rec ommendation, patient will be restarted on Eliquis. Aspirin was added per Neurology recommendation. The patient will be discharged to group home facility. Plan of care was discussed with the patient and the family in detail, they stated understanding. SIGNIFICANT LABORATORIES: 1. Creatinine on the day of discharge is 1.34. 2. Fasting lipid profile showed triglyceride 199, cholesterol 200, LDL 127, HDL 33. 3. Sodium on admission was 135, at discharge is 139. CBC on admission showed WBC 10.4 with hemoglobin 13.7. FINAL DIAGNOSES: 1. Acute cerebrovascular accident with possible hemorrhagic transformation. Anticoagulation has bee n restarted along with aspirin per Neurology recommendation. 2. Diabetes mellitus type 2. 3. Hypertension. 4. Mild acute kidney injury on chronic kidney disease stage 3. 5. Chronic anticoagulation for atrial fibrillation. 6. History of carotid stenosis, status post left carotid endarterectomy. 7. History of left lung cancer status post lobectomy. 8. A 89-kwas-lunz smoking history. Plan of care was discussed with the patient and the spouse in detail. They stated understanding. Total time coordinating the discharge of this patient was 33 minutes.
== END 2017-04-28 13:02 | DRG 64 ==
LOC: ERS 13:27 → 2SE 15:12
PROVIDERS: ADMIT Internal Medicine; ATTEND Internal Medicine
DX: I63.9 Cerebral infarction, unspecified (principal); I61.8 Other nontraumatic intracerebral hemorrhage; N17.9 Acute kidney failure, unspecified; I69.351 Hemiplegia and hemiparesis following cerebral infarction affecting right dominant side; I48.2 Chronic atrial fibrillation; E11.22 Type 2 diabetes mellitus with diabetic chronic kidney disease; E86.0 Dehydration; E78.5 Hyperlipidemia, unspecified; I12.9 Hypertensive chronic kidney disease with stage 1 through stage 4 chronic kidney disease, or unspecified chronic kidney disease; R47.81 Slurred speech; I69.328 Other speech and language deficits following cerebral infarction; Z79.01 Long term (current) use of anticoagulants; Z85.118 Personal history of other malignant neoplasm of bronchus and lung; Z90.2 Acquired absence of lung [part of]; Z87.891 Personal history of nicotine dependence; N18.3 Chronic kidney disease, stage 3 (moderate); Z66 Do not resuscitate; J44.9 Chronic obstructive pulmonary disease, unspecified
CPT/HCPCS: 36415; 36416; 70450; 70551; 71045; 80053; 80061; 80069; 81003; 81015; 82553; 82565; 83735; 84484; 85014; 85018; 85025; 85049; 85610; 85730; 93005; G8978-GP-CL; G8979-GP-CJ; G8987-GO-CL; G8988-GO-CJ; G8996-GN-CJ; G8997-GN-CI; J1815

== ENCOUNTER 2017-08-08 12:22 | Emergency (ER) | payer MEDICARE, BC ==
[2017-08-08 13:38] LABS: #Basophils 0.1 thou/uL (0.0-0.2); #Eosinphils 0.3 thou/uL (0.0-0.7); #Lymphocytes 1.4 thou/uL (1.20-3.40); #Monocytes 0.9 thou/uL (0.11-0.59); #Neutrophils 9.8 thou/uL (1.40-6.50); %Basophils 0.5 % (0.0-1.0); %Eosinophils 2.3 % (0.0-10.0); %Monocytes 7.1 % (0.0-10.0); %Neutrophils 79.1 % (42.0-75.0); Hemoglobin 13.2 g/dL (14.0-18.0); Mean Corpuscular HGB CONC 33.6 g/dL (32.0-36.0); Mean Corpuscular Hemoglobin 31.6 pg (27.0-31.0); Mean Corpuscular Volume 93.8 fl (80.0-94.0); Mean Platelet Volume 7.7 fL (7.4-10.4); Platelet Count 197 thou/uL (130-400); RBC Distribution Width 12.7 % (11.5-14.5); Red Blood Cell (RBC) Count 4.17 mill/uL (4.70-6.10); White Blood Cell (WBC) Count 12.4 thou/uL (4.8-10.8)
[2017-08-08 14:01] LABS: ALT (SGPT) 19 U/L (8-55); AST (SGOT) 14 U/L (5-34); Alkaline Phosphatase 82 U/L (40-150); Anion Gap 16 mmol/L (10-20); BUN (Urea Nitrogen) 25 mg/dL (8.4-25.7); Bilirubin, Total 0.2 mg/dL (0.2-1.2); Calc. Creatinine Clearance 0 mL/min (70-130); Calcium 9.3 mg/dL (7.8-10.44); Carbon Dioxide 20 mmol/L (23-31); Chloride 108 mmol/L (98-107); Estimated GFR-MDRD 40; Globulin 2.8 g/dL (2.4-3.5); Glucose 110 mg/dL (83-110); Potassium 4.7 mmol/L (3.5-5.1); Protein, Total 6.8 g/dL (5.8-8.1); Sodium 139 mmol/L (136-145)
[2017-08-08] MEDS ORDERED: Fleet Enema 133 ML BOT FS ONE (14:15)
[2017-08-08 14:19] LABS: Bilirubin Negative (Negative); Blood, Urine Negative (Negative); Clarity CLOUDY (Clear); Glucose, Urine (Dipstick) Negative (Negative); Leukocyte Negative (Negative); Nitrite Negative (Negative); Protein, Urine (Dipstick) Negative (Neg-Trace); Specific Gravity, Urine 1.015 (1.002-1.036); Urobilinogen 0.2 mg/dL (0.2-1.0); pH, Urine 5.5 (5.0-9.0)
== END 2017-08-08 19:54 | disposition home or self-care (01) ==
LOC: ERS 12:22
DX: K59.00 Constipation, unspecified (principal); R33.9 Retention of urine, unspecified; I10 Essential (primary) hypertension; I48.91 Unspecified atrial fibrillation; E11.9 Type 2 diabetes mellitus without complications; I69.30 Unspecified sequelae of cerebral infarction; Z87.891 Personal history of nicotine dependence; Z79.01 Long term (current) use of anticoagulants; Z79.84 Long term (current) use of oral hypoglycemic drugs; Z79.82 Long term (current) use of aspirin; Z79.899 Other long term (current) drug therapy
CPT/HCPCS: 36415; 51702; 80053; 81003; 85025; 87077; 87086; 87186

== ENCOUNTER 2017-10-30 23:05 | Emergency (ER) | payer MEDICARE, BC ==
[2017-10-31 00:42] LABS: #Eosinphils 0.3 thou/uL (0.0-0.7); #Lymphocytes 2.5 thou/uL (1.20-3.40); #Monocytes 0.7 thou/uL (0.11-0.59); #Neutrophils 4.3 thou/uL (1.40-6.50); %Basophils 0.5 % (0.0-1.0); %Eosinophils 3.9 % (0.0-10.0); %Lymphocytes 32.1 % (21.0-51.0); %Monocytes 9.2 % (0.0-10.0); %Neutrophils 54.3 % (42.0-75.0); Hemoglobin 12.4 g/dL (14.0-18.0); Mean Corpuscular HGB CONC 33.7 g/dL (32.0-36.0); Mean Corpuscular Hemoglobin 30.9 pg (27.0-31.0); Mean Corpuscular Volume 91.5 fL (78.0-98.0); Mean Platelet Volume 7.4 fL (7.4-10.4); Platelet Count 209 thou/uL (130-400); White Blood Cell (WBC) Count 7.9 thou/uL (4.8-10.8)
[2017-10-31] MEDS ORDERED: Levofloxacin 500 mg/D5W 100 ml Premix Bag ONE (00:43)
[2017-10-31] MEDS ORDERED: predniSONE 20 MG TAB ONE (00:45)
[2017-10-31 00:57] LABS: ALT (SGPT) 27 U/L (8-55); AST (SGOT) 16 U/L (5-34); Albumin 4.1 g/dL (3.4-4.8); Alkaline Phosphatase 81 U/L (40-150); Anion Gap 14 mmol/L (10-20); BUN (Urea Nitrogen) 30 mg/dL (8.4-25.7); Bilirubin, Total 0.3 mg/dL (0.2-1.2); Calc. Creatinine Clearance 0 mL/min (70-130); Calcium 9.6 mg/dL (7.8-10.44); Carbon Dioxide 25 mmol/L (23-31); Chloride 104 mmol/L (98-107); Estimated GFR-MDRD 38; Globulin 2.9 g/dL (2.4-3.5); Glucose 83 mg/dL (83-110); Potassium 4.9 mmol/L (3.5-5.1); Sodium 138 mmol/L (136-145)
--- NOTE | 2017-10-31 08:59 | RAD ---
AP VIEW CHEST: 10/30/17 HISTORY: Cough. AP view chest obtained on 10/30/17. Comparison made to previous exam from 04/23/17. AP view chest demonstrates surgical clips seen in the left upper hilar region. The lungs are otherwis e well aerated. No acute intrathoracic abnormality is seen. IMPRESSION: Left hilar postsurgical changes otherwise unremarkable AP view chest. POS: [facility]
== END 2017-10-31 02:00 | disposition home or self-care (01) ==
LOC: ERS 23:05
DX: R05 Cough (principal); E78.5 Hyperlipidemia, unspecified; I10 Essential (primary) hypertension; I48.91 Unspecified atrial fibrillation; Z86.73 Personal history of transient ischemic attack (TIA), and cerebral infarction without residual deficits; Z87.891 Personal history of nicotine dependence
CPT/HCPCS: 36415; 71045; 80053; 83605; 85025; 93005; 94760; J1956; J7506; J7620